=== PATIENT | female | born 1940 | race Caucasian/White ===

== ENCOUNTER → 2017-12-28 | Day surgery (SDC) | payer MEDICARE ==
[~2017-12-28] MED LIST: FENTANYL CITRATE/PF 100MCG/2 ML INJ ONE; MIDAZOLAM HCL 2 MG/2 ML VIAL ONE; MIRAPEX0.25 MG PO; OR PHACO EYE KIT ONE; PREOP PHACO EYE KIT ONE
--- OUTSIDE RECORDS SUMMARY | 2017-12-28 12:58 | XMS REPORT | Clinical Summary ---
Author Author [facility] Organization [facility] Address Unknown Phone Unavailable Care Team Providers Care Intelligence Senior Sergeant Name Role Phone Ciarra Thornton MD PCP Allergies Active Allergy Reactions Severity Noted Date Comments No Known Drug Allergies 04/16/2016 Current Medications Prescription Sig. Disp. Refills Start End Date Status Date CALCIUM CARBONATE-VITAMIN Take by mouth. Active D2 ORAL GLUCOSAMINE/CHONDROITIN Take by mouth 2 (two) Active SULF A times a day. (GLUCOSAMINE-CHONDROITIN ORAL) pramipexole (MIRAPEX) Take 1 po q pm 90 tablet 1 08/10/20 Active 0.25 MG tablet 17 MULTIVITAMIN (MULTIPLE Take by mouth. 02/04/20 Discontin VITAMIN ESSENTIAL ORAL) 17 ued budesonide EC (ENTOCORT Take 1 capsule (3 mg 90 capsule 1 12/15/19 03/15/20 EC) 3 mg 24 hr capsule total) by mouth 3 (three) 17 17 times a day for 90 days. Active Problems Problem Noted Date Cataract 12/20/2017 Restless legs 12/20/2017 Overview: Takes 1/2 dose Neuropathy 08/10/2017 Hyperlipidemia 04/27/2017 Lymphocytic colitis 02/04/2017 Overview: Seen by Dr Donahue, not yet seen by Paul Osteoporosis 04/16/2016 Resolved Problems Problem Noted Date Resolved Date Hyponatremia 04/27/2017 12/20/2017 Cerumen impaction 10/19/2016 04/21/2017 Ptosis of both eyelids 04/16/2016 04/21/2017 Encounters Date Type Specialty Care Team Description 12/23/2017 Lab Lab Missy Thornton Hyponatremia MD 12/23/2017 Telephone Access Missy Thornton MD 12/20/2017 Lab Lab Missy Thornton Pre-op evaluation; Cataract, unspecified cataract type, unspecified laterality 12/20/2017 Office Visit [facility] Missy Boothe, Pre- op exam (Primary Dx); Pre-op evaluation; Cataract, unspecified cataract type, unspecified laterality 12/14/2017 Telephone Missy Gomez, 08/10/2017 Lab Lab Missy Thornton, Restless legs; Lymphocytic colitis; Neuropathy 08/10/2017 Office Visit [facility] Missy Boothe, Restless legs (Primary MD Dx); Flu vaccine need; Lymphocytic colitis; Neuropathy 04/29/2017 Orders Only [facility] Crissy Clark MA Medicare annual wellness visit, subsequent; Visit for screening mammogram 04/27/2017 Orders Only [facility] Missy Boothe, Hyponatremia (Primary Dx) 04/21/2017 Lab Lab Missy Thornton, Lymphocytic colitis; Medicare annual wellness visit, subsequent; Osteoporosis 04/21/2017 Office Visit [facility] Missy Boothe, Medicare annual wellness MD visit, subsequent (Primary Dx); Visit for screening mammogram; Lymphocytic colitis; Osteoporosis 02/03/2017 Office Visit Gastroenterology Sanam Donahue MD Lymphocytic colitis (Primary Dx) after 12/27/2016 Immunizations Name Dates Previously Given Next Due FLUZONE HIGH-DOSE PF 10/19/2016 INFLUENZA QUAD PF 08/10/2017 Pneumococcal Conjugate 04/25/2015 13-Valent Pneumococcal 11/08/2011 Polysaccharide Zoster 11/08/2011 Family History Medical History Relation Name Comments Stroke Daughter HTN No Known Problems Father No Known Problems Mother Relation Name Status Comments Daughter Father Mother Social History Tobacco Use Types Packs/Day Years Used Date Never Smoker Smokeless Tobacco: Never Used Tobacco Cessation: Counseling Given: Yes Alcohol Use Drinks/Week oz/Week Comments No Sex Assigned at Date Recorded Not on file Last Filed Vital Signs Vital Sign Reading Time Taken Blood Pressure 136/84 12/20/2017 2:53 PM OIL AGENT Pulse 68 12/20/2017 2:14 PM OIL AGENT Temperature 37 C (98.6 F) 12/20/2017 2:14 PM OIL AGENT Respiratory Rate 16 02/03/2017 9:08 AM CDT Oxygen Saturation 97% 12/20/2017 2:14 PM OIL AGENT Inhaled Oxygen - - Concentration Weight 62.6 kg (138 lb) 12/20/2017 2:14 PM OIL AGENT Height 161.3 cm (5' 3.5") 12/20/2017 2:14 PM OIL AGENT Body Mass Index 24.06 12/20/2017 2:14 PM OIL AGENT Plan of Treatment Health Maintenance Due Date Last Done Comments COLONOSCOPY 06/26/2018 06/26/2013, 11/08/2012 MAMMOGRAM 04/27/2019 04/27/2017, 05/15/2016 PNEUMOCOCCAL Completed 11/08/2011, 11/08/2011 POLYSACCHARIDE VACCINE AGE 65 AND OVER ZOSTER VACCINE Completed 11/08/2011 PNEUMOCOCCAL-13 Completed 04/25/2015 INFLUENZA VACCINE Completed 08/10/2017, 10/19/2016 Results * Basic metabolic panel (12/23/2017 12:29 PM) Component Value Ref Range Glucose 92 65 - 99 mg/dL Comment: Fasting reference interval BUN, whole blood 11 7 - 25 mg/dL Creatinine 0.53 (L) 0.60 - 0.93 mg/dL Comment: For patients >49 years of age, the reference limit for Creatinine is approximately 13% higher for people identified as -Indonesian. EGFR Non-Afr. Indonesian 93 > OR=60 mL/min/1.73m2 EGFR 108 > OR=60 mL/min/1.73m2 BUN/creatinine ratio 21 6 - 22 (calc) Sodium 134 (L) 135 - 146 mmol/L Potassium 4.4 3.5 - 5.3 mmol/L Chloride 99 98 - 110 mmol/L CO2 25 20 - 31 mmol/L Calcium 9.3 8.6 - 10.4 mg/dL Specimen Performing Laboratory [facility] * CBC with platelet and differential (12/20/2017 3:10 PM) Only the most recent of 3 results within the time period is included. Component Value Ref Range WBC 4.9 3.8 - 10.8 Thousand/uL RBC 4.05 3.80 - 5.10 Million/uL HGB 12.8 11.7 - 15.5 g/dL HCT 37.9 35.0 - 45.0 % MCV 93.6 80.0 - 100.0 fL MCH 31.6 27.0 - 33.0 pg MCHC 33.8 32.0 - 36.0 g/dL RDW 12.9 11.0 - 15.0 % Platelet count 283 140 - 400 Thousand/uL MPV 10.6 7.5 - 12.5 fL Neutrophils, absolute 2,220 1,500 - 7,800 cells/uL Lymphocytes, absolute 1,867 850 - 3,900 cells/uL Monocytes, absolute 485 200 - 950 cells/uL Eosinophils, absolute 270 15 - 500 cells/uL Basophils, absolute 59 0 - 200 cells/uL Neutrophils 45.3 % Lymphocytes 38.1 % Monocytes 9.9 % Eosinophils 5.5 % Basophils + RC 1.2 % Specimen Performing Laboratory [facility] * Comprehensive metabolic panel (12/20/2017 3:10 PM) Only the most recent of 3 results within the time period is included. Component Value Ref Range Glucose 102 (H) 65 - 99 mg/dL Comment: Fasting reference interval For someone without known diabetes, a glucose value between 100 and 125 mg/dL is consistent with prediabetes and should be confirmed with a follow-up test. BUN, whole blood 19 7 - 25 mg/dL Creatinine 0.64 0.60 - 0.93 mg/dL Comment: For patients >49 years of age, the reference limit for Creatinine is approximately 13% higher for people identified as -Indonesian. EGFR Non-Afr. Indonesian 87 > OR=60 mL/min/1.73m2 EGFR 101 > OR=60 mL/min/1.73m2 BUN/creatinine ratio NOT APPLICABLE 6 - 22 (calc) Sodium 137 135 - 146 mmol/L Potassium 5.4 (H) 3.5 - 5.3 mmol/L Chloride 101 98 - 110 mmol/L CO2 29 20 - 31 mmol/L Calcium 9.9 8.6 - 10.4 mg/dL Protein 7.0 6.1 - 8.1 g/dL Albumin, S 4.3 3.6 - 5.1 g/dL Globulin, total 2.7 1.9 - 3.7 g/dL (calc) Albumin/globulin ratio 1.6 1.0 - 2.5 (calc) Total bilirubin 0.4 0.2 - 1.2 mg/dL Alkaline phosphatase 105 33 - 130 U/L AST 21 10 - 35 U/L ALT 14 6 - 29 U/L Specimen Performing Laboratory [facility] * ECG 12 lead (12/20/2017 2:25 PM) Component Value Ref Range Ventricular rate 65 Atrial rate 65 DC interval 152 QRSD interval 86 QT interval 418 QTC interval 434 P axis 1 69 QRS axis 1 28 T wave axis 59 EKG impression Normal sinus rhythm-Normal ECG-In automated comparison with ECG of 16-APR-2016 10:54,-No significant change was found- Specimen Performing Laboratory [facility] [address] [place] [id number] * Folate level (08/10/2017 4:07 PM) Component Value Ref Range Folate 22.8 ng/mL Comment: Reference Range Low: <3.4 Borderline: 3.4-5.4 Normal: >5.4 Specimen Performing Laboratory [facility] * Vitamin B12 level (08/10/2017 4:07 PM) Component Value Ref Range Vitamin B12 1,391 (H) 200 - 1,100 pg/mL Specimen Performing Laboratory [facility] * Transferrin level (08/10/2017 4:06 PM) Component Value Ref Range Transferrin 229 188 - 341 mg/dL Specimen Performing Laboratory [facility] * Thyroid stimulating hormone (08/10/2017 4:06 PM) Only the most recent of 2 results within the time period is included. Component Value Ref Range TSH 1.43 0.40 - 4.50 mIU/L Specimen Performing Laboratory [facility] * Iron level (08/10/2017 4:06 PM) Component Value Ref Range Iron level 130 45 - 160 mcg/dL Specimen Performing Laboratory [facility] * Ferritin level (08/10/2017 4:06 PM) Component Value Ref Range Ferritin level 61 20 - 288 ng/mL Specimen Performing Laboratory [facility] * Mammo Screening w Cad Bilateral (04/27/2017 9:53 AM) Specimen Performing Laboratory [facility] [address] [place] [id number] * Vitamin D 1,25 dihydroxy level, serum (04/21/2017 9:53 AM) Component Value Ref Range Vit D, 1,25-Dihydroxy 47 18 - 72 pg/mL Vitamin D2, 1,25 (OH)2 47 pg/mL Vitamin D2, 1,25 (OH)2 <8 pg/mL Comment: Vitamin D2, 1,25 (OH)2: Reference ranges are established for total 1,25-dihydroxy vitamin D. Values for subcomponents D2 (derived from plant or fungal sources) and D3 (derived from human or animal sources) are provided for informational purposes only. This test was developed and its analytical performance characteristics have been determined by [employer] [facility]. It has not been cleared or approved by the [place] Food and Drug Administration. This assay has been validated pursuant to the CLIA regulations and is used for clinical purposes. Specimen Performing Laboratory [facility] * Hemoglobin A1c (04/21/2017 9:53 AM) Component Value Ref Range Hemoglobin A1C 5.2 <5.7 % of total Hgb Comment: For the purpose of screening for the presence of diabetes: <5.7% Consistent with the absence of diabetes 5.7-6.4% Consistent with increased risk for diabetes (prediabetes) > or=6.5% Consistent with diabetes This assay result is consistent with a decreased risk of diabetes. Currently, no consensus exists regarding use of hemoglobin A1c for diagnosis of diabetes in children. According to [place] Diabetes Association (ADA) guidelines, hemoglobin A1c <7.0% represents optimal control in non- diabetic patients. Different metrics may apply to specific patient populations. Standards of Medical Care in Diabetes(ADA). Specimen Performing Laboratory [facility] * Lipid panel (04/21/2017 9:53 AM) Component Value Ref Range Cholesterol, total 210 (H) 125 - 200 mg/dL HDL cholesterol 88 > OR=46 mg/dL Triglycerides 66 <150 mg/dL LDL cholesterol 109 <130 mg/dL (calc) calculated Comment: Desirable range <100 mg/dL for patients with CHD or diabetes and <70 mg/dL for diabetic patients with known heart disease. Cholesterol/HDL ratio 2.4 < OR=5.0 (calc) Non-HDL cholesterol 122 mg/dL (calc) Comment: Target for non-HDL cholesterol is 30 mg/dL higher than LDL cholesterol target. Specimen Performing Laboratory [facility] after 12/27/2016 Insurance Payer Benefit Subscriber ID Type Phone Address Plan / Group AETNA MEDICARE AETNA xxxxxxxx HMO MEDICARE HMO/PPO [facility] Home:
== END | disposition home or self-care (01) ==
LOC: OR 12:56
PROVIDERS: ATTEND Ophthalmology
DX: H25.11 Age-related nuclear cataract, right eye (principal); G25.81 Restless legs syndrome
CPT/HCPCS: 66984; J2250

== ENCOUNTER → 2018-01-11 | Day surgery (SDC) | payer MEDICARE ==
[~2018-01-11] MED LIST changes: +LIDOCAINE HCL 2% LOCAL INJ 5 ML SDV VIAL INJ ONE; +PROPOFOL IV EMULSION 10 MG/ML 20 ML VIAL ONE
--- OUTSIDE RECORDS SUMMARY | 2018-01-11 08:52 | XMS REPORT | Clinical Summary ---
Author Author [facility] Organization [facility] Address Unknown Phone Unavailable Care Team Providers Care Labor Economics Professor Name Role Phone Ciarra Thornton MD PCP [...] cataract type, unspecified laterality 12/20/2017 Office Visit [facility] Missy Boothe, Pre- op exam (Primary Dx); Pre-op evaluation; Cataract, unspecified cataract type, unspecified laterality 12/14/2017 Telephone Missy Gomez, 08/10/2017 Lab Lab Missy Thornton, Restless legs; Lymphocytic colitis; Neuropathy 08/10/2017 Office Visit [facility] Missy Boothe, Restless legs (Primary MD Dx); Flu vaccine need; Lymphocytic colitis; Neuropathy 04/29/2017 Orders Only [facility] Crissy Clark MA Medicare annual wellness visit, subsequent; Visit for screening mammogram 04/27/2017 Orders Only [facility] Missy Boothe, Hyponatremia (Primary Dx) 04/21/2017 Lab Lab Missy Thornton, Lymphocytic colitis; Medicare annual wellness visit, subsequent; Osteoporosis 04/21/2017 Office Visit [facility] Missy Boothe, Medicare annual wellness MD visit, subsequent (Primary Dx); Visit for screening mammogram; Lymphocytic colitis; Osteoporosis 02/03/2017 Office Visit Gastroenterology Sanam Donahue MD Lymphocytic colitis (Primary Dx) after 01/10/2017 Immunizations Name Dates Previously Given Next Due [...] Taken Blood Pressure 136/84 12/20/2017 2:53 PM ACADEMIC SERVICES COORDINATOR Pulse 68 12/20/2017 2:14 PM ACADEMIC SERVICES COORDINATOR Temperature 37 C (98.6 F) 12/20/2017 2:14 PM ACADEMIC SERVICES COORDINATOR Respiratory Rate 16 02/03/2017 9:08 AM CDT Oxygen Saturation 97% 12/20/2017 2:14 PM ACADEMIC SERVICES COORDINATOR Inhaled Oxygen - - Concentration Weight 62.6 kg (138 lb) 12/20/2017 2:14 PM ACADEMIC SERVICES COORDINATOR Height 161.3 cm (5' 3.5") 12/20/2017 2:14 PM ACADEMIC SERVICES COORDINATOR Body Mass Index 24.06 12/20/2017 2:14 PM ACADEMIC SERVICES COORDINATOR Plan of Treatment Health Maintenance Due Date [...] approximately 13% higher for people identified as -Nigerien. EGFR Non-Afr. Nigerien 93 > OR=60 mL/min/1.73m2 EGFR 108 > [...] approximately 13% higher for people identified as -Nigerien. EGFR Non-Afr. Nigerien 87 > OR=60 mL/min/1.73m2 EGFR 101 > [...] Range Ventricular rate 65 Atrial rate 65 AL interval 152 QRSD interval 86 QT interval 418 QTC interval 434 P axis 1 69 QRS axis 1 28 T wave axis 59 EKG impression Normal sinus rhythm-Normal ECG-In automated comparison with ECG of 16-APR-2016 10:54,-No significant change was found- Specimen Performing Laboratory [facility] [address] [place] [id number] * Folate level (08/10/2017 4:07 PM) Component [...] (04/27/2017 9:53 AM) Specimen Performing Laboratory [facility] [address] [place] [id number] * Vitamin D 1,25 dihydroxy level, serum [...] analytical performance characteristics have been determined by [employer] [facility]. It has not been cleared or [...] diagnosis of diabetes in children. According to [place] Diabetes Association (ADA) guidelines, hemoglobin A1c <7.0% [...] target. Specimen Performing Laboratory [facility] after 01/10/2017 Insurance Payer Benefit Subscriber ID Type Phone Address Plan / Group AETNA MEDICARE AETNA xxxxxxxx HMO MEDICARE HMO/PPO [facility] Home:
== END | disposition home or self-care (01) ==
LOC: OR 08:50
PROVIDERS: ATTEND Ophthalmology
DX: H25.12 Age-related nuclear cataract, left eye (principal); M81.0 Age-related osteoporosis without current pathological fracture
CPT/HCPCS: 66984; J2001; J2250